=== PATIENT | female | born 1935 | race Caucasian/White ===

== ENCOUNTER 2018-06-14 11:36 | Outpatient (CLI) | payer MEDICARE, BC ==
--- NOTE | 2018-06-14 12:37 | RAD ---
LEFT HIP TWO VIEWS: HISTORY: Left hip pain. Trochanteric bursitis. FINDINGS: No fracture, dislocation, or bony destruction is seen. Mild degenerative changes are noted. POS: [facility]
== END 2018-06-14 11:37 | disposition home or self-care (01) ==
LOC: BICRAD 11:36
PROVIDERS: ATTEND Chiropractor
DX: M25.552 Pain in left hip (principal); M70.62 Trochanteric bursitis, left hip; M16.12 Unilateral primary osteoarthritis, left hip